=== PATIENT | male | born 1955 | race Caucasian/White ===

== ENCOUNTER 2019-07-06 08:56 | Emergency (ER) | payer MEDICARE, OTHER ==
[2019-07-06] MEDS ORDERED: LIDOCAINE 1% 10 ML VIAL INJ ONE (09:37)
--- NOTE | 2019-07-06 10:00 | RAD ---
EXAM DESCRIPTION: Hand,Left 3 Views CLINICAL HISTORY: finger dislocation/fracture COMPARISON: None Available. TECHNIQUE: AP, LATERAL, AND OBLIQUE FINDINGS: Three views left hand demonstrate dorsal dislocation of the long finger at the proximal interphalangeal joint with approximately 2 mm of overriding of the middle phalanx dorsally with a tiny alisia of cortical bone remaining at the volar aspect of the proximal phalangeal head. Remainder the hand is intact. No additional fractures noted. IMPRESSION: 1. Dorsal dislocation of the long finger at the proximal interphalangeal joint with tiny cortical evulsion from the volar base of the middle phalanx remaining along the volar surface of the proximal phalangeal head. 2. Remainder the hand is intact. Electronically signed by: Vaibhav Riggs MD 07/06/2019 9:58 AM CDT
--- NOTE | 2019-07-06 10:19 | ED.PDOC ---
History of Present Illness - General Chief Complaint: Upper Extremity Injury Stated Complaint: L 3rd digit injury Time Seen by Provider: 07/06/19 09:20 - History of Present Illness Initial Comments: 64-year-old male presents with spouse to ED complaining of left middle finger pain and deformity. Patient informed prior to arrival he was changing a tire that when he dropped it on the ground bounced up jamming his finger. He denies any numbness or tingling but had instant pain. Patient denies history of similar symptoms. Patient is otherwise healthy with no other signs symptoms or complaints. Allergies/Adverse Reactions: Allergies Penicillins Allergy (Verified 07/06/19 09:02) Hives Home Medications: Ambulatory Orders Olmesartan Medoxomil-Hydrochlo [Olmesartan Medoxomil/Hydr 40-25 mg] 1 tab PO DAILY 07/06/19 Trazodone HCl [Trazodone Hydrochloride] 50 mg PO BEDTIME 07/06/19 Review of Systems - Review of Systems Constitutional: States: weakness Musculoskeletal: States: joint pain, joint swelling Skin: Denies: change in color, rash Neurological: Denies: numbness, weakness Past Medical History (General) - Patient Medical History Hx Stroke: No Hx Asthma: Yes Hx Congestive Heart Failure: No Hx Hypertension: Yes Hx Diabetes: No Hx MRSA: No - Vaccination History Hx Tetanus, Diphtheria Vaccination: - unknown Hx Influenza Vaccination: Yes - 2018 - Social History Hx Tobacco Use: No Hx Chewing Tobacco Use: Yes Hx Alcohol Use: No Family Medical History - Family History Father Living Status: Age at (years of age): 57 Cause of : [place] Physical Exam - Physical Exam General Appearance: Alert, Comfortable Eyes, Ears, Nose, Throat Exam: PERRL/EOMI Neck: full range of motion Cardiovascular/Respiratory: regular rate, rhythm, no M/R/G, normal peripheral pulses, no JVD, normal breath sounds, no respiratory distress Elbow/Forearm Exam: normal inspection, non-tender, no evidence of injury, normal ROM Wrist Exam: normal inspection, non-tender, no evidence of injury, normal ROM Hand Exam: asymmetry, bone tenderness, deformity - left middle finger with middle phalange dislocation, swelling Progress - Progress Progress: Naif Soriano DO [id number] presents with dislocation of finger requiring reduction. I'll obtain x-ray to make sure there is no fracture evident limit reduction. Plan is to reduce finger, repeat x-ray status post reduction,splint finger, referred or so for outpatient follow-up, and discharge home. EXAM DESCRIPTION: Hand,Left 3 Views CLINICAL HISTORY: finger dislocation/fracture COMPARISON: None Available. TECHNIQUE: AP, LATERAL, AND OBLIQUE FINDINGS: Three views left hand demonstrate dorsal dislocation of the long finger at the proximal interphalangeal joint with approximately 2 mm of overriding of the middle phalanx dorsally with a tiny alisia of cortical bone remaining at the volar aspect of the proximal phalangeal head. Remainder the hand is intact. No additional fractures noted. IMPRESSION: 1. Dorsal dislocation of the long finger at the proximal interphalangeal joint with tiny cortical evulsion from the volar base of the middle phalanx remaining along the volar surface of the proximal phalangeal head. 2. Remainder the hand is intact. Electronically signed by: Vaibhav Riggs MD 07/06/2019 9:58 AM CDT Repeat s/p reduction: EXAM DESCRIPTION: Hand,Left 2 Views CLINICAL HISTORY: post reduction COMPARISON: None Available. TECHNIQUE: AP, LATERAL, AND OBLIQUE FINDINGS: The visualized bones appear well mineralized. Interval reduction of the dorsal dislocation of the proximal interphalangeal joint of the third digit. Fracture of the volar plate of the base of the middle phalanx of the third digit is again noted. Diffuse soft tissue swelling. IMPRESSION: Interval reduction of the dorsal dislocation of the proximal interphalangeal joint of the third digit. Fracture of the volar plate of the base of the middle phalanx of the third digit is again noted. Electronically signed by: Ana Rizzo MD 07/06/2019 10:46 AM CDT Procedures - Joint Reduction 3rd finger Conscious Sedation: No Reduction Attempts: 1 Pre-Procedure NV Exam: Yes - neurovascularly intact distally Post Joint Reduction Film: joint reduced - fracture is now visualized status post reduction Progress: digital block performed for analgesia. Patient tolerated reduction well without complication Departure - Departure Clinical Impression: Finger fracture, left, Dislocation, finger, interphalangeal joint Time of Disposition: 10:40 Disposition: Discharge to Home or Self Care Condition: Excellent Departure Forms: ED Discharge - Pt. Copy, Patient Portal Self Enrollment Instructions: DI for Finger Fracture, DI for Finger Dislocation Referrals: KODI MCMAHAN [Primary Care Provider] - 1-2 Weeks Abelardo Roblero MD [Referring] - 1-2 Weeks CHENTE BROTHERS [Referring] - 1-2 Weeks Home Medications: Ambulatory Orders Olmesartan Medoxomil-Hydrochlo [Olmesartan Medoxomil/Hydr 40-25 mg] 1 tab PO DAILY 07/06/19 Trazodone HCl [Trazodone Hydrochloride] 50 mg PO BEDTIME 07/06/19
--- NOTE | 2019-07-06 10:48 | RAD ---
EXAM DESCRIPTION: Hand,Left 2 Views CLINICAL HISTORY: post reduction COMPARISON: None Available. TECHNIQUE: AP, LATERAL, AND OBLIQUE FINDINGS: The visualized bones appear well mineralized. Interval reduction of the dorsal dislocation of the proximal interphalangeal joint of the third digit. Fracture of the volar plate of the base of the middle phalanx of the third digit is again noted. Diffuse soft tissue swelling. IMPRESSION: Interval reduction of the dorsal dislocation of the proximal interphalangeal joint of the third digit. Fracture of the volar plate of the base of the middle phalanx of the third digit is again noted. Electronically signed by: Ana Rizzo MD 07/06/2019 10:46 AM CDT
[2019-07-06 11:01] VITALS: BP 146/78; TEMP 97.2; O2SAT 96
== END 2019-07-06 10:55 | disposition home or self-care (01) ==
LOC: ER 08:56
DX: S62.623A Displaced fracture of middle phalanx of left middle finger, initial encounter for closed fracture (principal); J45.909 Unspecified asthma, uncomplicated; I10 Essential (primary) hypertension; W20.8XXA Other cause of strike by thrown, projected or falling object, initial encounter; Y93.89 Activity, other specified; Z88.0 Allergy status to penicillin; Y92.9 Unspecified place or not applicable